=== PATIENT | female | born 1955 | race Caucasian/White ===

== ENCOUNTER → 2023-04-04 | Outpatient (CLI) | payer MEDICARE, BC ==
--- NOTE | 2023-04-05 14:04 | MR ---
EXAMINATION TYPE: MR brain and iac wo/w con DATE OF EXAM: 04/04/2023 2:58 PM CLINICAL INDICATION:Female, 67 years old with history of R42 dizziness; [facility], COMPARISON: 09/14/2010 TECHNIQUE: Multi planar, multi sequence imaging was performed through the brain. Specialized thin s equences were obtained through the internal auditory canals. Pre-and post gadolinium sequences were obtained. MR contrast: IV Contrast: 8.5 cc Gadavist. FINDINGS: The thomas-white junctions, ventricular system, and cisterns appear unremarkable. Scattered foci and larger areas of of high T2 signal intensity are seen within the periventricular white matter. Some of these are seen on prior CT on 09/14/2010 including the left posterior frontal lobe, the right frontal lobe white matter areas not apparent on prior CT.. Midline structures show no abnormality. Diffusion -weighted imaging shows no evidence of restricted diffusion. The susceptibility weighted images do no t reveal any evidence for micro-hemorrhage. The bone marrow signal is within normal limits. Paranasal sinuses and mastoid air cells: Mild scattered paranasal sinus disease. Visualized orbits: Bilaterally aphakia. After administration of gadolinium, no abnormal enhancement is seen. The internal auditory canal sequences demonstrate no significant irregularity. The 7th cranial nerve s, 8 cranial nerves, and cerebellar pontine angles appear unremarkable. After the administration meseret olinium, no abnormal enhancement is seen within the internal auditory canals. Vascular loop: None. IMPRESSION: 1. No evidence of intracranial mass nor acute/subacute CVA. 2. No evidence of internal auditory canal abnormality. 3. Nonspecific white matter changes, white matter changes in the left posterior frontal lobe appears stable from prior CT. Right frontal lobe white matter changes are not apparent on prior CT..
== END | disposition home or self-care (01) ==
LOC: RADMRIMAIN 13:39
PROVIDERS: ATTEND Family Medicine
DX: R90.82 White matter disease, unspecified (principal); R42 Dizziness and giddiness
CPT/HCPCS: 70553; A9585

== ENCOUNTER → 2023-07-08 | Outpatient (CLI) | payer BC, MEDICARE ==
--- NOTE | 2023-07-09 15:52 | NM ---
EXAMINATION TYPE: NM DatScan Brain SPECT DATE OF EXAM: 07/08/2023 COMPARISON: NONE CLINICAL INDICATION: Female, 67 years old with history of R25.1 Tremor, Unspecified; TECHNIQUE: 10 drops of Lugol's solution was administered 1 hour prior to injection as a thyroid bloc pablito agent. After the administration of 4.32 mCi I-123 Ioflupane DaTscan. Images obtained 3 hours p ost injection. SPECT images of the brain were acquired with axial and coronal reconstructions. FINDINGS: There is normal background activity and normal comma shaped activity in the bilateral corpus striata. IMPRESSION: The appearance is against a diagnosis of Parkinson's disease or a parkinsonian syndrome. It may be se en in normal individuals and in those with essential tremor.
== END | disposition home or self-care (01) ==
LOC: RADNMMAIN 10:35
PROVIDERS: ATTEND Psychiatry & Neurology Neurology
DX: R25.1 Tremor, unspecified (principal)
CPT/HCPCS: 78803; A9584

== ENCOUNTER → 2024-11-16 | Outpatient (CLI) | payer MEDICARE ==
[2024-11-16 19:53] LABS: HCT 39.2 % (37.2-46.3); HGB 12.4 g/dL (12.0-15.0); MCH 30.8 pg (27.0-32.0); MCHC 31.6 g/dL (32.0-37.0); MCV 97.5 FL (80.0-97.0); NRBC Per 100 WBC 0 X 10*3/uL (0.00-0.01); Platelet Count 231 X 10*3/uL (140-440); RBC 4.02 X 10*6/uL (4.10-5.20); RDW 12.9 % (11.5-14.5); WBC 5.21 X 10*3/uL (4.50-10.00)
[2024-11-16 21:44] LABS: NT-Pro-B-Type Natriuretic Pept 86 pg/mL (0-125)
[2024-11-16 21:48] LABS: Anion Gap 14.00 mmol/L (4.00-12.00); BUN/Creat Ratio 18.18 Ratio (12.00-20.00); Blood Urea Nitrogen 20.0 mg/dL (9.0-27.0); Calcium 8.5 mg/dL (8.7-10.3); Carbon Dioxide 19.0 mmol/L (21.6-31.8); Chloride 111 mmol/L (96-109); Glucose 93 mg/dL (70-110); Potassium 4.7 mmol/L (3.5-5.5); Sodium 144 mmol/L (135-145)
== END | disposition home or self-care (01) ==
LOC: LABWHC1 13:40
PROVIDERS: ATTEND Internal Medicine Cardiovascular Disease
DX: R06.02 Shortness of breath (principal)
CPT/HCPCS: 36415; 80048; 83880; 84443; 85027